=== PATIENT | female | born 1950 | race Caucasian/White ===

== ENCOUNTER 2016-07-17 10:48 | Inpatient (IN) | payer MEDICARE, BC ==
[~2016-07-17] VITALS: Ht 165.1 cm; Wt 56.1 kg
[~2016-07-17 10:48] MED LIST: ASPI325T6 PO; CALCIUM 600600 M2 PO; CELEBREX 200MG200 MG PO; FERROUS SU325 MG/TAB PO; FOLIC ACID 40400 MCG PO; MULTIVITAMIN PO; NO HOME MEDICATIONS; NORCO 325 MG-7.1 TAB PO; ULTRAM 50MG TAB50 MG PO; VITAMIN C500 MG PO
[2016-09-08] VITALS (9 sets, daily range): BP systolic 99–138; BP diastolic 59–82; PULSE 61–89; TEMP 97.8–98.5
[2016-09-09 00:02] VITALS: BP 91/66; PULSE 71; TEMP 98.3
[2016-09-09 05:28] VITALS: BP 90/56; PULSE 64; TEMP 98.2
[2016-09-09 06:24] LABS: HEMOGLOBIN 10.1 g/dl (12.5-16.0)
[2016-09-09] MEDS ORDERED: ASPI325T6 PO (06:29)
[2016-09-09] MEDS ORDERED: ULTRAM 50MG TAB50 MG PO (06:30)
[2016-09-09] MEDS ORDERED: NORCO 325 MG-7.1 TAB PO (06:30)
[2016-09-09] MEDS ORDERED: CELEBREX 200MG200 MG PO (06:30)
[2016-09-09 12:16] VITALS: BP 108/62; PULSE 73; TEMP 98.3
[2016-09-09 17:01] VITALS: BP 117/66; PULSE 67; TEMP 98.6
[2016-09-09 20:03] VITALS: BP 90/55; PULSE 63; TEMP 97.5
[2016-09-10 00:04] VITALS: BP 102/59; PULSE 70; TEMP 98.2
[2016-09-10 04:33] VITALS: BP 93/56; PULSE 65; TEMP 98.1
[2016-09-10 06:46] LABS: HEMOGLOBIN 9.2 g/dl (12.5-16.0)
[2016-09-10 07:38] VITALS: BP 108/63; PULSE 72; TEMP 97.4
[2016-09-10 11:42] VITALS: BP 104/65; PULSE 76; TEMP 98.5
== END 2016-09-10 13:40 | disposition home or self-care (01) | DRG 470 ==
LOC: JCC 09-08 07:30
PROVIDERS: Orthopaedic Surgery
PROC: 0SRD0J9 Replacement of Left Knee Joint with Synthetic Substitute, Cemented, Open Approach (ICD-10-PCS; principal; 2016-09-08 11:00)
DX: M17.12 Unilateral primary osteoarthritis, left knee (principal); Z87.891 Personal history of nicotine dependence; M19.012 Primary osteoarthritis, left shoulder
CPT/HCPCS: A4315; A9284; C1713; C1776; J0690; J1885; J2250; J2704; J3010; J7120

== ENCOUNTER 2016-09-04 11:04 | Outpatient (RCR) | payer MEDICARE, BC | END 2016-09-04 12:55 | disposition home or self-care (01) | LOC: WSPT 11:04 | DX: Z01.818 Encounter for other preprocedural examination (principal); M17.12 Unilateral primary osteoarthritis, left knee | CPT/HCPCS: G8978-GP; G8979-GP; G8980-GP ==

== ENCOUNTER 2016-10-23 16:00 | Outpatient (RCR) | payer MEDICARE, BC | END 2016-11-03 08:38 | disposition home or self-care (01) | LOC: WSPT 16:00 | DX: Z47.89 Encounter for other orthopedic aftercare (principal); Z96.652 Presence of left artificial knee joint | CPT/HCPCS: G0283-GP; G8978-GP; G8979-GP; G8980-GP ==

== ENCOUNTER 2017-03-15 15:12 | Emergency (ER) | payer MEDICARE ==
[~2017-03-15] VITALS: Ht 165.1 cm; Wt 56.8 kg
[2017-03-15 15:19] VITALS: BP 133/79; TEMP 98.2
[2017-03-15] MEDS ORDERED: ASPIRIN E.C. 8181 MG PO (15:30)
[2017-03-15] MEDS ORDERED: NORCO 325 MG-51 TAB PO (16:27)
[2017-03-15 17:08] VITALS: PULSE 60
== END 2017-03-15 17:08 | disposition home or self-care (01) ==
LOC: COL.ER 15:12
DX: S42.021A Displaced fracture of shaft of right clavicle, initial encounter for closed fracture (principal); S22.41XA Multiple fractures of ribs, right side, initial encounter for closed fracture; W10.9XXA Fall (on) (from) unspecified stairs and steps, initial encounter
CPT/HCPCS: J1170; J2405

== ENCOUNTER 2017-05-28 07:40 | Outpatient (RCR) | payer MEDICARE, BC | END 2017-06-08 09:08 | LOC: MC.RAD 07:40 | DX: S42.001D Fracture of unspecified part of right clavicle, subsequent encounter for fracture with routine healing (principal) | CPT/HCPCS: G8984-GP; G8985-GP; G8986-GP ==

== ENCOUNTER → 2017-05-28 | Outpatient (CLI) | payer MEDICARE, BC ==
[~2017-05-28] MED LIST changes: +ASPIRIN E.C. 8181 MG PO; +NORCO 325 MG-51 TAB PO
== END ==
LOC: MC.RAD 07:54
DX: Z12.31 Encounter for screening mammogram for malignant neoplasm of breast (principal)

== ENCOUNTER → 2018-06-06 | Outpatient (CLI) | payer MEDICARE, BC | LOC: MC.RAD 07:40 | DX: Z12.31 Encounter for screening mammogram for malignant neoplasm of breast (principal) ==

== ENCOUNTER → 2019-06-19 | Outpatient (CLI) | payer MEDICARE, BC | LOC: MC.RAD 07:30 | DX: Z12.31 Encounter for screening mammogram for malignant neoplasm of breast (principal) ==

== ENCOUNTER 2021-03-20 12:54 | Outpatient (CLI) | payer MEDICARE, BC ==
[~2021-03-20] VITALS: Ht 165.1 cm; Wt 58.0 kg
[2021-03-20 13:30] VITALS: BP 105/67; PULSE 79; TEMP 98.1
[2021-03-20] MEDS ORDERED: EPA FISH OIL1 SGL PO (13:30)
[2021-03-20] MEDS ORDERED: TURMERIC500 MG PO (13:30)
[2021-03-20] MEDS ORDERED: PROTEIN1 PDR (13:31)
[2021-03-20] MEDS ORDERED: COLLAGENASE 1 ML1 ML (13:32)
== END 2021-03-20 14:00 | disposition home or self-care (01) ==
LOC: EUO 12:54
DX: M81.0 Age-related osteoporosis without current pathological fracture (principal)
CPT/HCPCS: J0897

== ENCOUNTER 2021-06-05 07:40 | Day surgery (SDC) | payer MEDICARE, BC ==
[2021-06-05] VITALS (7 sets, daily range): BP systolic 107–128; BP diastolic 63–93; PULSE 65–77; TEMP 97.2–98.2
[~2021-06-05] VITALS: Ht 165.1 cm; Wt 56.2 kg
[~2021-06-05 07:40] MED LIST changes: +COLLAGENASE 1 ML1 ML; +EPA FISH OIL1 SGL PO; +PROTEIN1 PDR; +TURMERIC500 MG PO
--- NOTE | 2021-06-05 08:20 | NUR ---
PATIENT BROUGHT BACK TO ENDO ROOM 1 VIA CART. AMBULATED TO CHAIR WITHOUT DIFFICULTY. PLACED ON MONITORS, VITAL SIGNS STABLE. DR. FELIX AT BEDSIDE SPEAKING WITH PATIENTS . PATIENT DENIES PAIN OR NAUSEA. REPORT RECIEVED FROM KATHY MONGE. REQUSTS WATER AND PUDDING. WARM BLANKET PROVIDED, WILL CONTINUE TO MONITOR.
--- NOTE | 2021-06-05 08:35 | NUR ---
PATIENT TOLERATING FOOD AND DRINK WITHOUT DIFFICULTY. WILL CONTINUE TO MONITOR.
--- NOTE | 2021-06-05 08:50 | NUR ---
PATIENT STATES SHE FEELS READY TO GO HOME. IV REMOVED, INTACT. DISCHARGE INSTRUCTIONS REVIEWED WITH PATIENT AND FAMILY. ALL QUESTIONS ANSWERED. TO GET DRESSED AT THIS TIME.
--- NOTE | 2021-06-05 08:55 | NUR ---
PATIENT BROUGHT DOWN TO LOBBY VIA WHEEL CHAIR. TO BE DRIVEN HOME BY . ALL BELONGINGS IN HAND.
--- NOTE | 2021-06-05 09:45 | NUR ---
PATIENT BROUGHT BACK TO [facility] VIA CART. PATIENT AMBULATED TO CHAIR WITHOUT DIFFICULTY. PLACED ON MONITORS, VITAL SIGNS STABLE. WARM BLANKET PROVIDED. DR. MARIE AT BEDSIDE TO SPEAK WITH PATIENT. SON DEISY TO DRIVE PATIENT HOME. REPORT RECIEVED FROM KATHY MONGE, ALL QUESTIONS ANSWERED. REQUESTS COFFEE. WILL CONTINUE TO MONITOR.
--- NOTE | 2021-06-05 10:00 | NUR ---
PATIENT TOLERATING COFFEE WITHOUT DIFFICULTY. WILL CONTINUE TO MONITOR.
--- NOTE | 2021-06-05 10:15 | NUR ---
PATIENT STATES SHE FEELS READY TO GO HOME. SON CALLED, WILL COME PICK PATIENT UP. VITAL SIGNS STABLE. IV REMOVED, INTACT. WILL CONTINUE TO MONITOR.
--- NOTE | 2021-06-05 11:15 | NUR ---
SON STATES HE IS WAITING AT PATIENT ENTRANCE TO DRIVE PATIENT HOME. BROUGHT DOWN TO LOBBY VIA WHEEL CHAIR. ALL BELONGINGS IN HAND.
== END 2021-06-05 11:15 | disposition home or self-care (01) ==
LOC: SDCO 07:40
DX: Z12.11 Encounter for screening for malignant neoplasm of colon (principal); K57.30 Diverticulosis of large intestine without perforation or abscess without bleeding; I10 Essential (primary) hypertension; M19.90 Unspecified osteoarthritis, unspecified site; M54.50 Low back pain, unspecified; E55.9 Vitamin D deficiency, unspecified; E78.5 Hyperlipidemia, unspecified; M81.0 Age-related osteoporosis without current pathological fracture; R80.9 Proteinuria, unspecified; Z79.899 Other long term (current) drug therapy; Z79.82 Long term (current) use of aspirin; Z20.822 Contact with and (suspected) exposure to COVID-19
CPT/HCPCS: G0121; J7030

== ENCOUNTER → 2021-07-02 | Outpatient (CLI) | payer MEDICARE, BC | LOC: MC.RAD 15:00 | DX: Z12.31 Encounter for screening mammogram for malignant neoplasm of breast (principal) ==

== ENCOUNTER 2021-10-09 14:32 | Outpatient (CLI) | payer MEDICARE ==
[~2021-10-09] VITALS: Ht 165.1 cm; Wt 59.0 kg
[2021-10-09 14:51] VITALS: BP 104/58; PULSE 62; TEMP 99.1
== END 2021-10-09 15:28 | disposition home or self-care (01) ==
LOC: EUO 14:32
DX: M81.0 Age-related osteoporosis without current pathological fracture (principal)
CPT/HCPCS: J0897

== ENCOUNTER 2022-04-09 14:48 | Outpatient (CLI) | payer MEDICARE ==
[~2022-04-09] VITALS: Ht 165.1 cm; Wt 60.3 kg
[2022-04-09] MEDS ORDERED: LIPITOR 10MG10 MG PO (15:37)
[2022-04-09] MEDS ORDERED: VITAMIN D31000 I1 PO (15:39)
[2022-04-09] MEDS ORDERED: VIACTIV PO (15:39)
[2022-04-09 15:40] VITALS: BP 115/72; PULSE 71; TEMP 98.6
== END 2022-04-09 17:03 | disposition home or self-care (01) ==
LOC: EUO 14:48
DX: M81.0 Age-related osteoporosis without current pathological fracture (principal)
CPT/HCPCS: J0897

== ENCOUNTER 2022-10-30 10:57 | Outpatient (CLI) | payer MEDICARE ==
[~2022-10-30] VITALS: Ht 165.1 cm; Wt 58.9 kg
[~2022-10-30 10:57] MED LIST changes: +LIPITOR 10MG10 MG PO; +VIACTIV PO; +VITAMIN D31000 I1 PO
[2022-10-30 11:19] VITALS: BP 96/61; PULSE 78; TEMP 98.6
[2022-10-30] MEDS ORDERED: PROLIA60 MG/ML SQ (11:22)
--- NOTE | 2022-10-30 11:39 | NUR ---
Pt tolerated prolia without issue. She exits dept with steady gait.
== END 2022-10-30 11:40 | disposition home or self-care (01) ==
LOC: EUO 10:57
DX: M81.0 Age-related osteoporosis without current pathological fracture (principal)
CPT/HCPCS: J0897

== ENCOUNTER 2023-05-06 08:07 | Outpatient (RCR) | payer MEDICARE ==
[~2023-05-06 08:07] MED LIST changes: +PROLIA60 MG/ML SQ
== END 2023-05-06 10:00 | disposition home or self-care (01) ==
LOC: WSPT 08:07
DX: M54.50 Low back pain, unspecified (principal)

== ENCOUNTER 2023-11-18 13:02 | Outpatient (CLI) | payer MEDICARE ==
[~2023-11-18] VITALS: Ht 165.1 cm; Wt 60.9 kg
[~2023-11-18 13:02] MED LIST changes: +COMPLETE MULTI1 TAB PO; -MULTIVITAMIN PO
[2023-11-18] MEDS ORDERED: Denosumab 60 MG/ML SYRINGE SQ ONE (13:15)
[2023-11-18 13:26] VITALS: BP 108/73; PULSE 73; TEMP 98.3
--- NOTE | 2023-11-18 13:45 | NUR ---
Pt tolerated prolia without issue. She exits dept with steady gait. She is free of complaints at discharge.
== END 2023-11-18 13:45 | disposition home or self-care (01) ==
LOC: EUO 13:02
DX: M81.0 Age-related osteoporosis without current pathological fracture (principal)
CPT/HCPCS: J0897

== ENCOUNTER 2024-06-06 10:53 | Outpatient (CLI) | payer MEDICARE ==
[~2024-06-06] VITALS: Ht 165.1 cm; Wt 59.1 kg
[2024-06-06 11:08] VITALS: BP 99/64; PULSE 70; TEMP 97.4
[2024-06-06] MEDS ORDERED: Denosumab 60 MG/ML SYRINGE SQ ONE (11:15)
--- NOTE | 2024-06-06 11:27 | NUR ---
pt tolerated injection well. vs remained within normal limits. pt ambulated to [facility] upon discharge. pt remained free from acute concerns and complaints.
== END 2024-06-06 11:29 | disposition home or self-care (01) ==
LOC: EUO 10:53
DX: M81.0 Age-related osteoporosis without current pathological fracture (principal)
CPT/HCPCS: J0897